=== PATIENT | male | born 1995 | race African-American/Black ===

== ENCOUNTER 2020-12-15 20:32 | Emergency (ER) | payer BC, OTHER ==
[~2020-12-15] VITALS: Ht 177.8 cm; Wt 63.5 kg
[2020-12-15 21:30] VITALS: BP 129/80
[2020-12-15] MEDS ORDERED: IBUPROFEN 800 MG TAB PO ONE (23:00)
== END 2020-12-15 23:07 | disposition home or self-care (01) ==
LOC: ER 20:32
DX: S20.212A Contusion of left front wall of thorax, initial encounter (principal); V00.311A Fall from snowboard, initial encounter; Y93.23 Activity, snow (alpine) (downhill) skiing, snowboarding, sledding, tobogganing and snow tubing; Y92.828 Other wilderness area as the place of occurrence of the external cause; Y99.8 Other external cause status
CPT/HCPCS: 71101